=== PATIENT | female | born 1975 | race Two or more races ===

== ENCOUNTER 2016-06-25 22:30 | Emergency (ER) | payer SELFPAY ==
[~2016-06-25] VITALS: Ht 157.5 cm; Wt 121.1 kg
[~2016-06-25 22:30] MED LIST: CEPH-264 PO; DOXY100T PO; HYDR-2666 PO; METF10002 PO; PHEN37.5 PO; SUMA25TA3 PO
[2016-06-25 23:21] LABS: BILIRUBIN,URINE NEGATIVE (NEG); GLUCOSE,URINE 100 mg/dL (NEG); NITRITE,URINE NEGATIVE (NEG); PROTEIN,URINE NEGATIVE (NEG-TRACE)
[2016-06-25 23:35] LABS: BACTERIA,URINE FEW /HPF (0-FEW); SQUAMOUS EPITHELIAL CELL,UR MOD /LPF
[2016-06-25] MEDS ORDERED: ACETAMINOPHEN 500 MG TABLET PO ONE (23:55)
--- NOTE | 2016-06-26 00:04 | PHYS DOC ---
Past Medical History Past Medical History: No Pertinent History Past Surgical History: Appendectomy, Cholecystectomy Alcohol Use: Occasionally Drug Use: None Adult General Chief Complaint Chief Complaint: ABDOMINAL PAIN HPI HPI Patient is a 41 year old female who presents with intermittent right lower quadrant abdominal pain that is achy for the past few weeks. States her pain has been constant since early this a.m. on 06/25/16. Has been taking ibuprofen with relief of her pain. States her last menstrual cycle was at the end of April 2016 and she has taken few home tests that of altered negative. She feels movement in her lower abdomen is very concerned that she is . She denies fever or chills, nausea or vomiting, diarrhea, dysuria, hematuria, vaginal bleeding or discharge. Review of Systems Review of Systems Constitutional: Denies fever or chills [] Eyes: Denies change in visual acuity, redness, or eye pain [] HENT: Denies nasal congestion or sore throat [] Respiratory: Denies cough or shortness of breath [] Cardiovascular: No additional information not addressed in HPI [] GI: Denies nausea, vomiting, bloody stools or diarrhea [] : Denies dysuria or hematuria [] Musculoskeletal: Denies back pain or joint pain [] Integument: Denies rash or skin lesions [] Neurologic: Denies headache, focal weakness or sensory changes [] Endocrine: Denies polyuria or polydipsia [] Current Medications Current Medications Current Medications Medications (Trade) Dose Ordered Sig/[facility] Start Time Stop Time Status Last Admin Dose Admin Acetaminophen (Tylenol) 500 mg 1X ONCE 06/25/16 23:55 06/25/16 23:56 DC 06/26/16 00:12 500 MG Allergies Allergies Allergies Coded Allergies Type Severity Reaction Last Updated Verified No Known Drug Allergies 10/15/13 No Physical Exam Physical Exam Constitutional: Well developed, well nourished, no acute distress, non-toxic appearance. [] HENT: Normocephalic, atraumatic, bilateral external ears normal, oropharynx moist, nose normal. [] Eyes: PERRLA, EOMI. [] Neck: Normal range of motion, supple. [] Cardiovascular:Heart rate regular rhythm [] Lungs & Thorax: Bilateral breath sounds clear to auscultation [] Abdomen: Bowel sounds normal, soft, no tenderness. [] Skin: Warm, dry, no erythema, no rash. [] Back: No tenderness, no CVA tenderness. [] Extremities: ROM intact, no edema. [] Neurologic: Alert and oriented X 3, normal motor function, normal sensory function, no focal deficits noted. [] Psychologic: Affect normal, judgement normal, mood normal. [] Current Patient Data Vital Signs Vital Signs Date Time Temp Pulse Resp B/P Pulse Ox O2 Delivery O2 Flow Rate FiO2 06/25/16 22:51 98.4 75 20 135/64 98 Room Air 98.4 Lab Values Laboratory Tests Test 06/25/16 22:40 Urine Collection Type Unknown Urine Color Keyla Urine Clarity Clear Urine pH 6.0 Urine Specific [place] >=1.030 Urine Protein Negativemg/dL (NEG-TRACE) Urine Glucose (UA) 100mg/dL (NEG) Urine Ketones (Stick) Negativemg/dL (NEG) Urine Blood Negative (NEG) Urine Nitrite Negative (NEG) Urine Bilirubin Negative (NEG) Urine Urobilinogen Dipstick 1.0mg/dL (0.2 mg/dL) Urine Leukocyte Esterase Small (NEG) Urine RBC 1-2/HPF (0-2) Urine WBC 1-4/HPF (0-4) Urine Squamous Epithelial Cells Mod/LPF Urine Bacteria Few/HPF (0-FEW) Urine Mucus Mod/LPF Radiology/Procedures Radiology/Procedures Ultrasound pelvis IMPRESSION: Vascular flow identified to the right ovary. Hypoechoic lesion near the cervix measuring 8 millimeters. Could be a nabothian cyst with debris given location although small fibroid also in differential. There are either 2 small cystic lesions adjacent to each other or a cystic lesion with a septation within the right ovary. Follow-up examination could be obtained in a few months to ensure no growth given possible septation. Electronically signed by: Albin Estrada (Jun 26, 2016 00:45:29) Course & Med Decision Making Course & Med Decision Making Pertinent Labs and Imaging studies reviewed. (See chart for details) She appears well on exam. Urine is not likely a clean specimen; will await urine culture before treatment. Workup remarkable for right ovarian cyst and likely abnormal uterine bleeding. Recommend follow-up with primary care and gynecology. Return precautions given. She understands and agrees with plan. Dragon Disclaimer Dragon Disclaimer This electronic medical record was generated, in whole or in part, using a voice recognition dictation system. Departure Departure Impression: Primary Impression: Right lower quadrant abdominal pain Disposition: HOME, SELF-CARE Condition: STABLE Referrals: NO PCP (PCP) Patient Instructions: Abdominal Pain, [id number] Additional Instructions: Take Tylenol or ibuprofen as needed for pain. Follow-up with your primary care doctor and return agent. Return for any concerns. Nando CLAUDIO MD Jun 26, 2016 00:04
--- NOTE | 2016-06-26 00:46 | RAD ---
INDICATION: Pelvic pain. COMPARISON: None TECHNIQUE: Transabdominal grayscale and spectral doppler ultrasound images are obtained of the pelvis. Transvaginal ultrasound images obtained as well. FINDINGS: Dimensions are in mm Uterus: 93 x 56 x 48 Endometrial Stripe: Four Right ovary: 34 x 25 x 21 Left ovary: 25 x 14 x 10 Vascular flow is identified to right ovary. 27 x 22 millimeter cystic lesion with septations right ovary. Hypoechoic lesion near cervix measuring 8 millimeter IMPRESSION: Vascular flow identified to the right ovary. Hypoechoic lesion near the cervix measuring 8 millimeters. Could be a nabothian cyst with debris given location although small fibroid also in differential. There are either 2 small cystic lesions adjacent to each other or a cystic lesion with a septation within the right ovary. Follow-up examination could be obtained in a few months to ensure no growth given possible septation. Electronically signed by: Albin Estrada (Jun 26, 2016 00:45:29)
[2016-06-26 00:58] VITALS: BP 112/54
== END 2016-06-26 00:59 | disposition home or self-care (01) ==
LOC: ER 06-26 00:07
DX: R10.31 Right lower quadrant pain (principal)
CPT/HCPCS: 76830; 76856; 81001; 81025; 87086; 99285-25

== ENCOUNTER 2016-08-14 22:29 | Emergency (ER) | payer SELFPAY ==
[~2016-08-14] VITALS: Ht 160 cm; Wt 121.1 kg
[2016-08-14] MEDS ORDERED: AMOX500C PO (23:33)
--- NOTE | 2016-08-14 23:34 | PHYS DOC ---
Past Medical History Past Medical History: No Pertinent History Past Surgical History: Appendectomy, Cholecystectomy Alcohol Use: Occasionally Drug Use: None Adult General Chief Complaint Chief Complaint: DENTAL PROBLEM HPI HPI Patient is a 41 year old female presents emergency department stating that she has having left upper dental pain. She states started today. Patient's denies taking any medications for the pain. She states this is very strong pain she is unable to describe it any further. Patient states she does have a dentist which she can follow-up with. She states that she has not taken anything for the pain as she is taking some weight loss medications and is afraid interact with any of the medications that she may take at home. Review of Systems Review of Systems Constitutional: Denies fever or chills [] Eyes: Denies change in visual acuity, redness, or eye pain [] HENT: Denies nasal congestion or sore throat. Left upper back dental pain Respiratory: Denies cough or shortness of breath [] Cardiovascular: No additional information not addressed in HPI [] GI: Denies abdominal pain, nausea, vomiting, bloody stools or diarrhea [] : Denies dysuria or hematuria [] Musculoskeletal: Denies back pain or joint pain [] Integument: Denies rash or skin lesions [] Neurologic: Denies headache, focal weakness or sensory changes [] Allergies Allergies Allergies Coded Allergies Type Severity Reaction Last Updated Verified No Known Drug Allergies 10/15/13 No Physical Exam Physical Exam Constitutional: Well developed, well nourished, no acute distress, non-toxic appearance. [] HENT: Normocephalic, atraumatic, bilateral external ears normal, oropharynx moist, no oral exudates, nose normal. Bilateral tympanic membranes appear to be normal. A shunt with left maxillary sinus tenderness. Patient also has left upper back dental pain that appears to be red around the gumline's. Eyes: PERRLA, EOMI, conjunctiva normal, no discharge. [] Neck: Normal range of motion, no tenderness, supple, no stridor. [] Cardiovascular:Heart rate regular rhythm, no murmur [] Lungs & Thorax: Bilateral breath sounds clear to auscultation [] Skin: Warm, dry, no erythema, no rash. [] Back: No tenderness Extremities: No tenderness, no cyanosis, no clubbing, ROM intact, no edema. [] Neurologic: Alert and oriented X 3, normal motor function, normal sensory function, no focal deficits noted. [] Psychologic: Affect normal, judgement normal, mood normal. [] EKG EKG [] Radiology/Procedures Radiology/Procedures [] Course & Med Decision Making Course & Med Decision Making Pertinent Labs and Imaging studies reviewed. (See chart for details) She'll provided with hydrocodone here in the emergency department. She was instructed to use Tylenol or ibuprofen at home. She may use ibuprofen 800 mg every 8 hours with food stop taking few develop an upset stomach. Patient will be placed on amoxicillin. Recommended following up with her dentist within the next week. Patient was recommended to use warm salt water mouth rinses 4 times a day continue to brush and floss her teeth. Signs symptoms to return back to emergency department was provided. Patient agrees with discharge instructions treatment regimens and follow-up recommendations. [] Dragon Disclaimer Dragon Disclaimer This electronic medical record was generated, in whole or in part, using a voice recognition dictation system. Departure Departure Impression: Primary Impression: Pain, dental Disposition: HOME, SELF-CARE Condition: STABLE Referrals: NO PCP (PCP) Patient Instructions: Dental Pain, [id number] Additional Instructions: He may take Tylenol or ibuprofen for pain and discomfort. Ibuprofen 800 mg every 8 hours with food stop taking few develop an upset stomach. Medications as prescribed. Warm salt water mouth rinses 4 times a day and prior to bedtime. You to brush and floss her teeth twice a day. Follow-up with your dentist as soon as possible. Return back to emergency prior signs symptoms of become worse. Scripts Amoxicillin 500 Mg Capsule1 Cap PO QID #40 CAP Prov:EVERARDO BALLARD APRN 08/14/16 EVERARDO BALLARD APRN Aug 14, 2016 23:34
[2016-08-14] MEDS ORDERED: HYDROCODONE/APAP 5/325MG TABLET. PO ONE (23:45)
[2016-08-14 23:56] VITALS: BP 177/86
== END 2016-08-14 23:52 | disposition home or self-care (01) ==
LOC: ER 22:29
DX: K08.89 Other specified disorders of teeth and supporting structures (principal); Z90.49 Acquired absence of other specified parts of digestive tract
CPT/HCPCS: 99283

== ENCOUNTER 2016-08-16 02:59 | Emergency (ER) | payer SELFPAY ==
[~2016-08-16] VITALS: Ht 160 cm; Wt 114.3 kg
[~2016-08-16 02:59] MED LIST changes: +AMOX500C PO
[2016-08-16 03:00] VITALS: BP 142/76
[2016-08-16] MEDS ORDERED: CLIN-44 PO (03:57)
[2016-08-16] MEDS ORDERED: HYDR-963 PO (03:57)
--- NOTE | 2016-08-16 03:58 | PHYS DOC ---
Past Medical History Past Medical History: No Pertinent History Past Surgical History: Appendectomy, Cholecystectomy Alcohol Use: None Drug Use: None Adult General Chief Complaint Chief Complaint: FACE PROBLEM HPI HPI Patient is a 41 year old female who presents with complaint of left-sided facial swelling and pain. Patient was seen 2 days ago and diagnosed with dental abscess. Patient was started on amoxicillin for treatment. Patient states that she has had worsening swelling along the left side of her face over the past 2 days since her visit. The patient has been taking Tylenol and naproxen to try to help with her symptoms. Patient states that she has been taking her amoxicillin but that this has not been helping her symptoms. Patient does plan on seeing a dentist in the next 2 days. The patient rates her pain currently is 10 out of 10. Patient states that the worst of the pain is along her upper teeth on the left side. Review of Systems Review of Systems Constitutional: Denies fever or chills [] Eyes: Denies change in visual acuity, redness, or eye pain [] HENT: Facial swelling, dental pain [] Respiratory: Denies cough or shortness of breath [] Cardiovascular: Denies chest pain or edema [] GI: Denies abdominal pain, nausea, vomiting, bloody stools or diarrhea [] : Denies dysuria or hematuria [] Musculoskeletal: Denies back pain or joint pain [] Integument: Denies rash or skin lesions [] Neurologic: Denies headache, focal weakness or sensory changes [] Current Medications Current Medications Current Medications Medications (Trade) Dose Ordered Sig/[facility] Start Time Stop Time Status Last Admin Dose Admin Acetaminophen/ Hydrocodone Bitart (Lortab 10/325) 1 tab 1X ONCE 08/16/16 04:00 08/16/16 04:01 UNV Clindamycin HCl (Cleocin) 450 mg 1X ONCE 08/16/16 04:00 08/16/16 04:01 UNV Allergies Allergies Allergies Coded Allergies Type Severity Reaction Last Updated Verified No Known Drug Allergies 10/15/13 No Physical Exam Physical Exam Constitutional: Alert, afebrile, appears in moderate discomfort. [] HENT: Normocephalic, atraumatic, swelling along left zygoma and cheek, tender to palpation, dental tenderness at tooth #14, no palpable fluctuance along gingival ridge, bilateral external ears normal, oropharynx moist, no oral exudates, nose normal. [] Eyes: PERRLA, EOMI, conjunctiva normal, no discharge. [] Neck: Normal range of motion, no tenderness, supple, no stridor. [] Lungs & Thorax: Bilateral breath sounds clear to auscultation [] Abdomen: Bowel sounds normal, soft, no tenderness, no masses, no pulsatile masses. [] Extremities: No tenderness, no cyanosis, no clubbing, ROM intact, no edema. [] Neurologic: Alert and oriented X 3, normal motor function, normal sensory function, no focal deficits noted. [] Current Patient Data Vital Signs Vital Signs Date Time Temp Pulse Resp B/P Pulse Ox O2 Delivery O2 Flow Rate FiO2 08/16/16 03:00 98.1 93 19 98 Room Air 98.1 EKG EKG Not performed [] Radiology/Procedures Radiology/Procedures Not performed [] Course & Med Decision Making Course & Med Decision Making Pertinent Labs and Imaging studies reviewed. (See chart for details) The patient was started on clindamycin and given hydrocodone to help with pain. Advised follow-up in 2 days with the patient's dentist. The patient will be stopped on her amoxicillin and started on clindamycin for 10 day course. Advised return to the emergency department for any worsening symptoms. Patient voiced understanding and in agreement with treatment plan. Dragon Disclaimer Dragon Disclaimer This electronic medical record was generated, in whole or in part, using a voice recognition dictation system. Departure Departure Impression: Primary Impression: Dental abscess Disposition: HOME, SELF-CARE Condition: IMPROVED Referrals: NO PCP (PCP) Patient Instructions: Dental Abscess Additional Instructions: Follow-up with your dentist in 2-3 days. Discontinue use of amoxicillin and started on clindamycin for treatment of your dental abscess. Return to the emergency department for any worsening symptoms. Scripts Hydrocodone/Apap 10-325 ([place] 10-325 Tablet)1 Each Tablet1 Tab PO Q6HRS PRN PAIN #20 TAB Ref 0 Prov:MARLEE MATHIS MD 08/16/16 Clindamycin Hcl 150 Mg [id number] Mg PO TID #90 CAP Prov:MARLEE MATHIS MD 08/16/16 MARLEE MATHIS MD Aug 16, 2016 03:58
[2016-08-16] MEDS ORDERED: CLINDAMYCIN HCL 150 MG CAPSULE. PO ONE (04:15)
[2016-08-16] MEDS ORDERED: HYDROCODONE/APAP 10/325 TABLET. PO ONE (04:15)
== END 2016-08-16 04:03 | disposition home or self-care (01) ==
LOC: ER 02:59
DX: K04.7 Periapical abscess without sinus (principal)
CPT/HCPCS: 99283